=== PATIENT | female | born 1960 | race Two or more races ===

== ENCOUNTER 2019-08-07 13:01 | Outpatient (CLI) | payer MEDICAID ==
[~2019-08-07] VITALS: Ht 157.5 cm; Wt 58.5 kg
[2019-08-07] MEDS ORDERED: ARIMIDEX1 MG ORAL (15:05)
[2019-08-07] MEDS ORDERED: AMLODIPINE BESY10 MG ORAL (15:05)
[2019-08-07] MEDS ORDERED: LISINOPRIL40 MG ORAL (15:05)
[2019-08-07] MEDS ORDERED: METFORMIN HCL1000 M1 ORAL (15:05)
[2019-08-07] MEDS ORDERED: COMPAZINE10 MG ORAL (15:05)
[2019-08-07 15:07] VITALS: BP 138/72
--- NOTE | 2019-08-07 22:00 | Consultation ---
DATE OF CONSULTATION: 08/07/2019 CONSULTING PHYSICIAN: Johann Almeida M.D. CHIEF COMPLAINT: Screening colonoscopy evaluation. PAST MEDICAL HISTORY: 1. Diabetes. 2. Hypertension. 3. Left breast cancer. PAST SURGICAL HISTORY: Mastectomy. MEDICATIONS: Metformin, lisinopril, Compazine, amlodipine, and Arimidex. FAMILY HISTORY: No family history of GI malignancies. SOCIAL HISTORY: The patient denies any tobacco, alcohol, or drug use. ALLERGIES: No known allergies. REVIEW OF SYSTEMS: A 10-point review of systems performed and pertinent positives in HPI. PHYSICAL EXAMINATION: GENERAL: A well-developed female, in no acute distress. VITAL SIGNS: Temperature 97.3, blood pressure is 132/72, pulse 82, and respirations 20 HEENT: Normocephalic and atraumatic. NECK: Supple. No evidence of obvious lymphadenopathy. CARDIOVASCULAR: Regular rate and rhythm. Plus S1-S2. LUNGS: Clear to auscultation bilaterally. ABDOMEN: Positive bowel sounds. Soft and nontender. No rebound. No guarding. No peritoneal sign. EXTREMITIES: No cyanosis, no clubbing, no edema. ASSESSMENT AND PLAN: This is a 59-year-old female who was referred for a screening colonoscopy. The patient was given instruction for colonoscopy. Risks and benefits of procedure was explained to her. We will schedule when authorization is obtained. Johann Almeida M.D. DR: Shaun JOB#: [id number] CC:
== END 2019-08-07 15:01 | disposition home or self-care (01) ==
LOC: PAN 13:01
DX: E11.9 Type 2 diabetes mellitus without complications (principal); I10 Essential (primary) hypertension; Z85.3 Personal history of malignant neoplasm of breast; Z79.899 Other long term (current) drug therapy; Z90.10 Acquired absence of unspecified breast and nipple
CPT/HCPCS: G0463

== ENCOUNTER 2019-10-05 12:45 | Outpatient (CLI) | payer MEDICAID ==
[~2019-10-05 12:45] MED LIST: AMLODIPINE BESY10 MG ORAL; ARIMIDEX1 MG ORAL; COMPAZINE10 MG ORAL; LISINOPRIL40 MG ORAL; METFORMIN HCL1000 M1 ORAL
[2019-10-05 13:09] VITALS: BP 134/64
--- NOTE | 2019-10-05 13:31 | General Progress Note ---
Assessment/Plan Assessment/Plan: one collon polyp needs repeat colon on 5 years Subjective ROS Limited/Unobtainable: Yes Allergies: Coded Allergies: No Known Allergies (Unverified , 08/07/19) Objective Last 24 Hour Vital Signs Date Time Temp Pulse Resp B/P (MAP) Pulse Ox O2 Delivery O2 Flow Rate FiO2 10/05/19 13:09 97.3 69 16 134/64 (87) 98 General Appearance: alert EENT: normal ENT inspection Neck: supple Cardiovascular: normal rate Respiratory/Chest: decreased breath sounds Abdomen: normal bowel sounds, non tender, soft Extremities: non-tender Johann Almeida MD Oct 05, 2019 13:31
== END 2019-10-05 14:45 | disposition home or self-care (01) ==
LOC: PAN 12:45
DX: K63.5 Polyp of colon (principal)
CPT/HCPCS: 99212